=== PATIENT | male | born 2000 | race Caucasian/White ===

== ENCOUNTER 2025-01-17 12:51 | Emergency (ER) | payer SELFPAY ==
[2025-01-17 12:54] VITALS: BP 136/95
--- NOTE | 2025-01-17 14:39 | ED.GENMED ---
History of Present Illness
General
Chief Complaint: Skin Surface Trauma
Time Seen by Provider: 01/17/25 13:37
History of Present Illness
History of Present Illness:
24-year-old male without significant past medical history presenting for laceration to the left thenar eminence. Patient was cutting an avocado prior to arrival and the knife slipped and cut his hand. Patient [id number]. Tetanus is not
up-to-date. Denies numbness or tingling or additional acute injuries
Phy Exam
Physical Exam
Physical Exam:
General: Well-appearing, no clinical signs of dehydration, nontoxic and in no acute distress
HEENT: protecting airway
Neck: appears supple
CV: Normal heart rate
Resp: No accessory muscle use, no increased work of breathing
Abd: No distention
Extremities: No deformities, no swelling. Small 3 cm laceration to the left thenar eminence at the palmar aspect, subcutaneous without muscular or tendinous involvement. Range of motion of the hand is intact
Neuro: alert, no focal neurologic deficit
: deferred
Rectal: deferred
Psych: Normal affect
Skin: Intact
Course
Orders/Labs/Results
Orders:
Orders
01/17/25 14:31
Tetanus/Diphth/Acelpertussis [Adacel] 0.5 ml IM .ONCE ONE
Vital Signs
Initial and Last Documented VS:
Initial Vital Signs
Temp Pulse Resp BP Pulse Ox
97.8 F 73 18 136/95 100
01/17/25 12:54 01/17/25 12:54 01/17/25 12:54 01/17/25 12:54 01/17/25 12:54
Last Documented Vital Signs
Temp Pulse Resp BP Pulse Ox
97.8 F 73 18 136/95 100
01/17/25 12:54 01/17/25 12:54 01/17/25 12:54 01/17/25 12:54 01/17/25 12:54
Procedures
Laceration Closure
Left Palmar Hand:
Status of Wound: clean
Size of Wound in cm: 3
Preparation: cleaned with saline
Anesthesia: 1% Lidocaine
Type of Closure: single layer closure
Skin Closure Material: 4-0 prolene
Number of sutures: 3
MDM/Problems Addressed
MDM/Problems Addressed:
24-year-old male presenting for laceration to the left hand after cutting himself with a knife. Vital signs normal. On exam, small subcutaneous laceration to the left thenar eminence of the hand. No significant swelling, no deformity, no
neurovascular compromise. No infectious concerns. Laceration repaired. Please see procedure note. Tetanus updated. Advised suture removal in 7 to 10 days. Return precautions discussed
*Pulse Oximetry
SaO2: 100
Oxygen Mode of Delivery: Room air
Patient hypoxic: no
*Critical Care Note
Total Time (30-74mins, 75-104mins- exclusive of procedures): Not Applicable
ED Attending Note
-
Portions of this chart may have been created with voice recognition software.� Occasional wrong word or��sound alike� substitutions may have occurred due to the inherent limitations of voice recognition software.
Discharge Plan
Departure
Patient Disposition: Home (Routine Discharge)
Date of Disposition: 01/17/25
Time of Disposition: 14:43
Patient with high blood pressure during this ER visit?: No
Condition: Good
Discharge Problem:
Laceration of hand, left
Instructions: Laceration Repair With Stitches (DC)
Stand Alone Forms: Return to Work
Activity Restrictions/Additional Instructions:
You were seen in the emergency department for laceration to your left hand
You had 3 sutures placed which will need to be removed in 7 to 10 days.
Please follow-up closely with your primary care physician.
Return to the emergency department for any worsening of your symptoms, or any development of chest pain, difficulty breathing, abdominal pain with persistent vomiting and inability to tolerate food or liquid by mouth (concern for dehydration),
weakness, headache or confusion, fever greater than 100.4, or any additional symptoms that are concerning to you.
Thank you for choosing [facility].
Interventions
Interventions:
*Risk Screen - Suicide Last Done: 01/17/25 12:54
*General Assessment Last Done: 01/17/25 12:54
ED-Skin Assessment Last Done: 01/17/25 13:36
Discharge Date and Time
Print Language: [id number]
[2025-01-17] MEDS: ADACEL 0.5 ML IM (14:41)
== END 2025-01-17 15:15 | disposition home or self-care (01) ==
LOC: EMR 12:51
PROVIDERS: EMERGENCY PHYSICIAN Student in an Organized Health Care Education/Training Program; FAMILY PHYSICIAN Internal Medicine
DX: S61.412A Laceration without foreign body of left hand, initial encounter (principal); W26.0XXA Contact with knife, initial encounter; Y93.G1 Activity, food preparation and clean up; Z23 Encounter for immunization
CPT/HCPCS: 99282; 12002; 90471; 90715